=== PATIENT | female | born 1985 | race Caucasian/White ===

== ENCOUNTER 2018-10-07 08:45 | Inpatient (IN) | payer OTHER ==
[~2018-10-07] VITALS: Ht 157.5 cm; Wt 57.2 kg
[2018-10-12] MEDS ORDERED: OBSTETRIX ONE1 EACH PO (08:08)
== END 2018-10-14 11:50 | DRG 806 ==
LOC: LDR 10-11 23:49 → OB/GYN 10-11 23:49 → SURH 10-14 08:45 → OB/GYN 10-14 11:50
PROVIDERS: ADMIT Specialist
PROC: 4A0HXFZ Measurement of Products of Conception, Cardiac Rhythm, External Approach (ICD-10-PCS; 2018-10-11)
PROC: 10E0XZZ Delivery of Products of Conception, External Approach (ICD-10-PCS; principal; 2018-10-12)
PROC: 0KQM0ZZ Repair Perineum Muscle, Open Approach (ICD-10-PCS; 2018-10-12)
DX: O70.1 Second degree perineal laceration during delivery (principal); O41.03X0 Oligohydramnios, third trimester, not applicable or unspecified; Z37.0 Single live birth; Z3A.37 37 weeks gestation of pregnancy

== ENCOUNTER 2018-10-10 14:05 | Outpatient (CLI) | payer OTHER | END 2018-10-10 14:30 | disposition home or self-care (01) | LOC: NST 14:05 | DX: Z34.83 Encounter for supervision of other normal pregnancy, third trimester (principal) ==

== ENCOUNTER 2021-07-02 15:06 | Emergency (ER) | payer OTHER ==
[~2021-07-02] VITALS: Ht 160 cm; Wt 45.4 kg
[~2021-07-02 15:06] MED LIST: OBSTETRIX ONE1 EACH PO
[2021-07-02] MEDS ORDERED: FUSION PLUS CA1 EACH PO (15:43)
== END 2021-07-02 21:18 | disposition home or self-care (01) ==
LOC: ER 15:06
DX: R51.9 Headache, unspecified (principal); O26.892 Other specified pregnancy related conditions, second trimester; Z3A.15 15 weeks gestation of pregnancy

== ENCOUNTER 2021-12-12 09:25 | Inpatient (IN) | payer OTHER ==
[~2021-12-12] VITALS: Ht 160 cm; Wt 54.4 kg
[~2021-12-12 09:25] MED LIST changes: +FUSION PLUS CA1 EACH PO
[2021-12-12] MEDS ORDERED: PRENATAL TABLE1 EAC3 PO (11:51)
== END 2021-12-14 13:03 | disposition home or self-care (01) | DRG 807 ==
LOC: OB/GYN 09:25 → LDR 09:25 → OB/GYN 15:50
PROVIDERS: ADMIT Specialist; ATTEND Specialist
PROC: 10E0XZZ Delivery of Products of Conception, External Approach (ICD-10-PCS; principal; 2021-12-12)
PROC: 0KQM0ZZ Repair Perineum Muscle, Open Approach (ICD-10-PCS; 2021-12-12)
PROC: 4A1HXCZ Monitoring of Products of Conception, Cardiac Rate, External Approach (ICD-10-PCS; 2021-12-12)
DX: O70.1 Second degree perineal laceration during delivery (principal); Z37.0 Single live birth; Z3A.38 38 weeks gestation of pregnancy; Z20.822 Contact with and (suspected) exposure to COVID-19

== ENCOUNTER 2024-01-13 14:00 | Inpatient (IN) | payer OTHER ==
[~2024-01-13] VITALS: Ht 160 cm; Wt 60.3 kg
[~2024-01-13 14:00] MED LIST changes: +PRENATAL TABLE1 EAC3 PO
[2024-01-20 11:31] VITALS: BP 115/78; O2SAT 99
[2024-01-20 23:31] VITALS: BP 115/78; O2SAT 99
[2024-01-20 23:48] VITALS: BP 125/73
[2024-01-21] VITALS (13 sets, daily range): BP systolic 91–140; BP diastolic 60–82
[2024-01-21] MEDS ORDERED: IBUprofen 600 MG TABLET PO SCH ×2 (00:15→12:00)
[2024-01-21] MEDS ORDERED: ERYTHROMYCIN BASE OPHT 1GM EACH TUBE OP ONE (02:30)
[2024-01-21] MEDS ORDERED: OXYTOCIN 1,000 ML IV SCH (02:30)
[2024-01-21] MEDS ORDERED: LIDOCAINE HCL 1% 10ML VIAL IJ ONE (02:30)
[2024-01-21] MEDS ORDERED: CHLORHEXIDINE GLUCONATE 120 ML BOTTLE TOP ONE (02:30)
[2024-01-21] MEDS ORDERED: AMPICILLIN SODIUM 2,000 MG VIAL IV ONE (02:30)
[2024-01-22] VITALS: BP 121/80
[2024-01-22 08:00] VITALS: BP 126/80
== END 2024-01-22 14:17 | disposition home or self-care (01) | DRG 807 ==
LOC: LDR 01-20 23:36 → OB/GYN 01-20 23:36 → LDR 01-24 14:00
PROVIDERS: ADMIT Specialist; ATTEND Specialist
PROC: 10E0XZZ Delivery of Products of Conception, External Approach (ICD-10-PCS; principal; 2024-01-20)
PROC: 0HQ9XZZ Repair Perineum Skin, External Approach (ICD-10-PCS; 2024-01-20)
PROC: 4A1HXCZ Monitoring of Products of Conception, Cardiac Rate, External Approach (ICD-10-PCS; 2024-01-20)
DX: O70.0 First degree perineal laceration during delivery (principal); Z37.0 Single live birth; Z3A.36 36 weeks gestation of pregnancy; Z20.822 Contact with and (suspected) exposure to COVID-19

== ENCOUNTER 2024-01-20 19:34 | Outpatient (CLI) | payer OTHER ==
[~2024-01-20] VITALS: Ht 160 cm; Wt 60.3 kg
[2024-01-20 18:43] VITALS: BP 124/81; O2SAT 99
[2024-01-20] MEDS ORDERED: RINGERS SOLUTION,LACTATED 1,000 ML IV SCH (20:30)
[2024-01-20 21:24] LABS: HEMATOCRIT 36.3 % (36.0-45.00); HEMOGLOBIN 12.7 g/dL (12.0-15.00); MEAN CELL VOLUME 98.3 fL (80.00-100.00); MEAN CORPUSCULAR HEMOGLOBIN 34.5 pg (27.00-32.0); MEAN CORPUSCULAR HGB CONC 35.1 g/dl (32.0-36.0); PLATELET COUNT 240 K/uL (150-450); RED CELL DISTRIBUTION WIDTH 14.1 % (11.5-14.5)
[2024-01-20 21:35] LABS: INR < 0.93; PARTIAL THROMBOPLASTIN TIME 26.2 SECONDS (22.0-34.0); PROTHROMBIN TIME 9.9 SECONDS (9.0-11.5)
[2024-01-20 21:46] LABS: ALBUMIN 2.9 gm/dL (3.4-5.0); BILIRUBIN TOTAL 0.33 mg/dL (0.3-1.2); CALCIUM 9.2 mg/dL (8.5-10.1); CREATININE SERUM 0.5 mg/dL (0.55-1.02); GFR 137.35; GLOBULINA 3.3 G/DL (2.4-3.5); POTASSIUM 3.99 mEq/L (3.5-5.1); TOTAL PROTEIN 6.2 gm/dL (6.4-8.2)
[2024-01-20 23:00] VITALS: BP 121/72; O2SAT 99
[2024-01-20 23:08] LABS: PH,URINE 6.5 (5.0-8.0); URINE APPEARANCE Clear; URINE BILIRRUBIN Negative (NEGATIVE); URINE BLOOD Negative; URINE COLOR Yellow; URINE GLUCOSE Negative (NEGATIVE); URINE LEUKOCYTE Negative; URINE NITRATE Negative; URINE PROTEIN Negative (NEGATIVE); URINE UROBILINOGEN 0.2 E.U./dl
[2024-01-20 23:11] LABS: URINE EPITHELIAL CELLS 9.5 uL (0.0-38.8)
[2024-01-20 23:13] LABS: URINE KETONE 80 (NEGATIVE); URINE RBC 1.5 uL (0.0-20.8); URINE WBC 0.9 uL (0.0-23.2)
== END 2024-01-20 23:35 | disposition still patient (30) ==
LOC: OBS/DEL 19:34
PROVIDERS: ATTEND Specialist
DX: O26.893 Other specified pregnancy related conditions, third trimester (principal); Z3A.36 36 weeks gestation of pregnancy